=== PATIENT | male | born 1980 | race Caucasian/White ===

== ENCOUNTER 2016-11-02 16:08 | Emergency (ER) | payer BC ==
[2016-11-02] MEDS ORDERED: NORMAL SALINE 10 ML SYRINGE FLUSH IVP PRN (16:21)
[2016-11-02] MEDS ORDERED: KETOROLAC 15 MG/1 ML VIAL IVP ONE (16:21)
[2016-11-02] MEDS ORDERED: Sodium Chloride 0.9% 1,000 ML PRIMARY IV ONE (16:21)
[2016-11-02 16:23] VITALS: RESP 16; TEMP 95.8
[2016-11-02 16:41] LABS: BASOPHILS # (AUTO) 0.05 10*3/UL; EOSINOPHILS # (AUTO) 0.16 10*3/UL; EOSINOPHILS % (AUTO) 3.3 % (0-8); HEMATOCRIT 46.9 % (42.0-52.0); HEMOGLOBIN 16.8 g/dL (14.0-18.0); LYMPHOCYTES # (AUTO) 1.53 10*3/uL; MEAN CORPUSCULAR HEMOGLOBIN 34.6 PG (27-31); MEAN CORPUSCULAR HGB CONC 35.8 g/dL (33-37); MEAN CORPUSCULAR VOLUME 96.7 FL (80-90); MEAN PLATELET VOLUME 10.3 FL (7.4-12.2); MONOCYTES # (AUTO) 0.49 10*3/UL (0.3-0.8); MONOCYTES % (AUTO) 10.1 % (5-15); NEUTROPHILS # (AUTO) 2.63 10*3/UL; RED BLOOD COUNT 4.85 10^6/uL (4.70-6.10)
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
[2016-11-02 16:49] LABS: PLATELET MORPHOLOGY COMMENT NORMAL MORPHOLOGY (NORM); RBC MORPHOLOGY COMMENT NORMAL MORPHOLOGY (NORM); WBC MORPHOLOGY COMMENT NORMAL MORPHOLOGY (NORM)
[2016-11-02 17:27] LABS: BLOOD UREA NITROGEN 10 mg/dL (7-22); CALCIUM 8.6 mg/dL (8.7-10.7); EST GLOMERULAR FILTRATION > 60 (>60 ml/min/1.73m(2)); SERUM ALBUMIN 3.5 g/dL (3.5-4.8)
[2016-11-02 17:28] LABS: C-REACTIVE PROTEIN < 0.5 mg/dL (0.0-0.9)
== END 2016-11-02 17:44 | disposition home or self-care (01) ==
LOC: ER 16:08
DX: R25.2 Cramp and spasm (principal)
CPT/HCPCS: 80053; 82550; 83735; 85025; 86140; 96361; 96374; 99282; 99283; J1885; J7030